=== PATIENT | female | born 1965 | race Caucasian/White ===

== ENCOUNTER 2024-07-06 21:43 | Emergency (ER) | payer MEDICAID ==
[2024-07-06] MEDS ORDERED: HYDRALAZINE HCL 20 MG/ML VIAL ONE (22:17)
--- NOTE | 2024-07-06 22:54 | RAD REPORT ---
EXAMINATION: ONE VIEW CHEST XR CLINICAL INDICATION: Female, 58 years old.,CHEST PAIN TECHNIQUE: Frontal chest projection is submitted. Examination is limited by patient positioning and t echnique. COMPARISON: No prior exam. FINDINGS: The lungs are well inflated and clear. No pneumothorax or sizable effusion. The heart is normal in s ize. Mediastinal contours are unremarkable. IMPRESSION: No acute intrathoracic abnormalities.
[2024-07-06 23:02] LABS: Absolute Eosinophils 0.1 K/uL (0-0.5); Absolute Lymphocytes (CBC) 1.7 K/uL (0.7-4.9); Absolute Monocytes 0.7 K/uL (0.1-1.3); Absolute Neutrophil 3.4 K/uL (1.8-8.0); Basophils % 0.6 % (0-1.3); Eosinophils % 1.6 % (0-4.4); Hematocrit 36.3 % (36.0-45.0); Hemoglobin 12.5 g/dL (12.0-15.0); Lymphocytes % 28.8 % (15.3-44.8); MCH 30.2 pg (27.0-35.0); MCHC 34.5 g/dL (32.0-36.0); MCV 87.6 fL (80-100); MPV 9.7 fL (7.6-11.3); Monocytes % 11.4 % (3.3-12.3); Neutrophils % 57.6 % (41.7-73.7); Nucleated Red Blood Cells % 0.1 % (0-0); Platelets 173 thou/uL (152-406); RBC Red Blood Cell Count 4.15 M/uL (3.86-4.86); Red Cell Distribution Width 13.1 % (12.1-15.2)
[2024-07-06 23:32] LABS: Anion Gap 9.5 mEq/L (5.0-15.0); Troponin High Sensitivity 3.4 pg/mL (<58.9)
[2024-07-06 23:34] LABS: Potassium 3.5 mEq/L (3.5-5.1)
--- NOTE | 2024-07-06 23:54 | ER ---
Nurse's Notes [facility] Name: Rena Castle Age: 58 yrs Sex: Female : 1965 Arrival Date: 07/06/2024 Time: 21:43 Bed 4 Private MD: Diagnosis: Essential (primary) hypertension Presentation: 07/06 21:59 Chief complaint: Patient states: WAS GOING TO BED AND FELT LIGHT HEADED, DIZZY AND dd2 CHEST POUNDING, TOOK HER BP 189/112, 185/107. Coronavirus screen: At this time, the client does not indicate any symptoms associated with coronavirus-19. Ebola Screen: No symptoms or risks identified at this time. Initial Sepsis Screen: Does the patient meet any 2 criteria? No. Patient's initial sepsis screen is negative. Does the patient have a suspected source of infection? No. Patient's initial sepsis screen is negative. Risk Assessment: Do you want to hurt yourself or someone else? Patient reports no desire to harm self or others. Onset of symptoms was July 06, 2024. 21:59 Method Of Arrival: Ambulatory dd2 21:59 Acuity: NICOLE 3 dd2 Triage Assessment: 22:03 General: Appears in no apparent distress. Behavior is calm, cooperative, appropriate dd2 for age. Pain: Denies pain. EENT: No deficits noted. No signs and/or symptoms were reported regarding the EENT system. Neuro: Level of Consciousness is awake, alert, obeys commands, Oriented to person, place, time, Reports dizziness. Cardiovascular: Reports lightheadedness, shortness of breath, JVD is absent Patient's skin is warm and dry. Respiratory: Reports shortness of breath at rest on exertion Airway is patent Respiratory effort is even, unlabored, Respiratory pattern is regular, symmetrical. GI: Abdomen is non-distended, Abd is soft and non tender X 4 quads. : No deficits noted. No signs and/or symptoms were reported regarding the genitourinary system. Derm: No deficits noted. No signs and/or symptoms reported regarding the dermatologic system. Musculoskeletal: No deficits noted. No signs and/or symptoms reported regarding the musculoskeletal system. Circulation, motion, and sensation intact. Range of motion: intact in all extremities. Historical: - Allergies: 22:03 Depakote; dd2 22:03 Spironolactone; dd2 - PMHx: 22:03 Hypertensive disorder; Seizure; Multiple sclerosis; dd2 - PSHx: 22:03 Tonsillectomy; Appendectomy; HYSTERECTOMY; UMESH ELBOW REPAIR; HERNIA REPAIR; KIDNEY SX; dd2 - Immunization history:: Adult Immunizations up to date, Client reports receiving the 2nd dose of the Covid vaccine, Client reports receiving the 1st dose of the Covid vaccine, Flu vaccine is not up to date. It has been more than one year since last vaccine. - Infectious Disease History:: Denies. - Social history:: Smoking status: Patient denies any tobacco usage or history of. Screenin:57 [facility] ED Fall Risk Assessment (Adult) History of falling in the last 3 months, al5 including since admission No falls in past 3 months (0 pts) Confusion or Disorientation No (0 pts) Intoxicated or Sedated No (0 pts) Impaired Gait No (0 pts) Mobility Assist Device Used No (0 pt) Altered Elimination No (0 pt) Score/Fall Risk Level 0 - 2 = Low Risk Oriented to surroundings, Maintained a safe environment, Hourly rounding (assess needs \T\ fall precautionary measures) done. Abuse screen: Denies threats or abuse. Denies injuries from another. Nutritional screening: No deficits noted. Tuberculosis screening: No symptoms or risk factors identified. Assessment: 22:10 General: Appears in no apparent distress. comfortable, Behavior is calm, cooperative. al5 Pain: Complains of pain in head Pain currently is 2 out of 10 on a pain scale. Neuro: Level of Consciousness is awake, alert, obeys commands, Oriented to person, place, time, situation. Cardiovascular: Reports hypertension Capillary refill < 3 seconds Patient's skin is warm and dry. Rhythm is sinus rhythm. Respiratory: Airway is patent Respiratory effort is even, unlabored, Respiratory pattern is regular, symmetrical. GI: No signs and/or symptoms were reported involving the gastrointestinal system. : No signs and/or symptoms were reported regarding the genitourinary system. EENT: No signs and/or symptoms were reported regarding the EENT system. Derm: Skin is intact, is healthy with good turgor, Skin is pink, warm \T\ dry. normal. Musculoskeletal: No signs and/or symptoms reported regarding the musculoskeletal system. 23:57 Reassessment: Patient appears in no apparent distress at this time. Patient and/or al5 family updated on plan of care and expected duration. Pain level reassessed. Patient is alert, oriented x 3, equal unlabored respirations, skin warm/dry/pink. Patient states feeling better. Patient states symptoms have improved. Vital Signs: 21:59 BP 166 / 112; Pulse 82; Resp 17; Temp 98.3; Pulse Ox 98% on R/A; Weight 64.41 kg; dd2 Height 5 ft. 3 in. ; 22:30 BP 157 / 92; Pulse 84; Resp 18; Pulse Ox 97% ; al5 23:30 BP 162 / 88; Pulse 90; Resp 18; Pulse Ox 97% ; al5 21:59 Body Mass Index 25.15 (64.41 kg, 160.02 cm) dd2 ED Course: 21:49 Patient arrived in ED. gm2 21:51 Rocio Arellano PA-C is PHCP. sb4 21:51 Kaveh Costello MD is Attending Physician. sb4 22:02 Kath Sanchez, CORY is Primary Nurse. kd3 22:03 Triage completed. dd2 22:03 Arm band placed on right wrist. dd2 22:10 Patient has correct armband on for positive identification. Bed in low position. Call al5 light in reach. Side rails up X2. Provided Education on: plan of care. 22:18 XRAY Chest (1 view) In Process Unspecified. EDMS 22:28 Inserted saline lock: 22 gauge in right wrist, using aseptic technique. Blood ha1 collected. Flushed with 10 mL NS. 23:57 No provider procedures requiring assistance completed. al5 07/07 00:05 IV discontinued, intact, bleeding controlled, No redness/swelling at site. Pressure al5 dressing applied. Administered Medications: 07/06 22:28 Drug: hydrALAZINE IVP 10 mg IVP once Route: IVP; Site: right wrist; ha1 23:58 Follow up: Response: No adverse reaction; Blood pressure is lowered al5 Medication: 23:58 VIS not applicable for this client. al5 Outcome: 23:53 Discharge ordered by . sb4 07/07 00:05 Discharged to home ambulatory, with significant other, al5 Condition: good Discharge instructions given to patient, Instructed on discharge instructions, follow up and referral plans. medication usage, Demonstrated understanding of instructions, follow-up care, medications, Prescriptions given X 1, 00:28 Patient left the ED. kd3 Signatures: Dispatcher [employer] Kath Campbell RN RN kd3 Mariia Nichole RN RN [email or web address] Rocio Arellano, PAAshleyC PA-C sb4 Lucia Espinoza gm2 Sonal Irwin RN RN al5 MELVIN OVERTON RN RN dd2
--- NOTE | 2024-07-06 23:54 | EDPHYS ---
Physician Documentation [facility] Name: Rena Castle Age: 58 yrs Sex: Female : 1965 Arrival Date: 07/06/2024 Time: 21:43 Bed 4 Private MD: ED Physician Kaveh Costello HPI: 07/06 22:07 This 58 yrs old Female presents to ER via Ambulatory with complaints of High Blood sb4 Pressure. 22:07 Patient states that she was feeling "odd "this evening- lightheaded and a pounding in sb4 her chest. States that she checked her blood pressure and it was 180/90s. Does report a history of hypertension and takes olmesartan daily. States her blood pressure definitely runs 150s over 80s. States that she does currently have a headache. Denies any history of heart disease. Historical: - Allergies: 22:03 Depakote; dd2 22:03 Spironolactone; dd2 - PMHx: 22:03 Hypertensive disorder; Seizure; Multiple sclerosis; dd2 - PSHx: 22:03 Tonsillectomy; Appendectomy; HYSTERECTOMY; UMESH ELBOW REPAIR; HERNIA REPAIR; KIDNEY SX; dd2 - Immunization history:: Adult Immunizations up to date, Client reports receiving the 2nd dose of the Covid vaccine, Client reports receiving the 1st dose of the Covid vaccine, Flu vaccine is not up to date. It has been more than one year since last vaccine. - Infectious Disease History:: Denies. - Social history:: Smoking status: Patient denies any tobacco usage or history of. ROS: 22:08 Constitutional: Negative for fever, chills, and weight loss, sb4 22:08 Cardiovascular: Positive for "pounding", 22:08 Neuro: Positive for light headedness, 22:08 Neuro: Positive for headache, 22:08 All other systems are negative, Exam: 22:34 Constitutional: This is a well developed, well nourished patient who is awake, alert, sb4 and in no acute distress. Head/Face: Normocephalic, atraumatic. Eyes: Extra-ocular motions intact. Periorbital areas with no swelling, redness, or edema. ENT: Mucous membranes moist. Cardiovascular: Regular rate and rhythm with a normal S1 and S2. Respiratory: No increased work of breathing, no retractions or nasal flaring. Abdomen/GI: Soft, non-tender, no distension. Skin: Warm, dry with normal turgor. Normal color with no rashes, no lesions, and no evidence of cellulitis. Neuro: Awake and alert, GCS 15, oriented to person, place, time, and situation. Motor strength 5/5 in all extremities. Sensory grossly intact. Vital Signs: 21:59 BP 166 / 112; Pulse 82; Resp 17; Temp 98.3; Pulse Ox 98% on R/A; Weight 64.41 kg; dd2 Height 5 ft. 3 in. ; 22:30 BP 157 / 92; Pulse 84; Resp 18; Pulse Ox 97% ; al5 23:30 BP 162 / 88; Pulse 90; Resp 18; Pulse Ox 97% ; al5 21:59 Body Mass Index 25.15 (64.41 kg, 160.02 cm) dd2 MDM: 21:52 Medical Screening Exam initiated sb4 23:55 Data reviewed: vital signs, nurses notes, lab test result(s), EKG, radiologic studies, sb4 and as a result, I will discharge patient. Counseling: I had a detailed discussion with the patient and/or guardian regarding the historical points, exam findings, and any diagnostic results supporting the discharge/admit diagnosis, the presence of at least one elevated blood pressure reading (>120/80) during this emergency department visit, lab results, radiology results, the need for outpatient follow up, for definitive care, to return to the emergency department if symptoms worsen or persist or if there are any questions or concerns that arise at home. 07/06 22:04 Order name: Basic Metabolic Panel; Complete Time: 23:37 sb4 07/06 22:04 Order name: CBC with Diff sb4 07/06 22:04 Order name: Troponin HS; Complete Time: 23:37 sb4 07/06 23:14 Order name: CBC Smear Scan EDMS 07/06 22:04 Order name: XRAY Chest (1 view); Complete Time: 22:55 sb4 07/06 22:04 Order name: EKG; Complete Time: 22:04 sb4 07/06 22:04 Order name: Cardiac monitoring; Complete Time: 22:33 sb4 07/06 22:04 Order name: EKG - Nurse/Tech; Complete Time: 22:33 sb4 04/14 22:04 Order name: IV Saline Lock; Complete Time: :33 sb4 07/06 22:04 Order name: Labs collected and sent; Complete Time: : sb4 07/06 22:04 Order name: O2 Per Protocol; Complete Time: : sb4 07/06 22:04 Order name: O2 Sat Monitoring; Complete Time: :33 sb4 EC:34 Rate is 83 beats/min. Rhythm is regular, Normal Sinus Rhythm. [place] interval is normal at sb4 146 msec. QRS interval is normal at 74 msec. QT interval is normal at 384 msec. No Q waves. T waves are Normal. No ST changes noted. Clinical impression: No evidence of ischemia. Interpreted by me. Reviewed by me. Administered Medications: 22:28 Drug: hydrALAZINE IVP 10 mg IVP once Route: IVP; Site: right wrist; ha1 23:58 Follow up: Response: No adverse reaction; Blood pressure is lowered al5 Disposition: 07/07 03:48 Co-signature as Attending Physician, Kaveh Costello MD I agree with the assessment sp4 and plan of care. I reviewed the patient's care provided by the Advanced Practice Provider and agree with the diagnosis and treatment plan. Disposition Summary: 07/06/24 23:53 Discharge Ordered Notes: Location: Home sb4 Problem: new sb4 Symptoms: have improved sb4 Condition: Stable sb4 Diagnosis - Essential (primary) hypertension sb4 Followup: sb4 - With: Private Physician - When: 1 week - Reason: Recheck today's complaints, Re-evaluation by your physician Discharge Instructions: - Discharge Summary Sheet sb4 - Hypertension, Adult sb4 - Form - Blood Pressure Record Sheet sb4 Forms: - Patient Portal Instructions sb4 - Leadership Thank You Letter sb4 Prescriptions: - clonidine HCl 0.1 mg Oral tablet - take 1 tablet ORAL route every 1 to 2 hours as needed for hypertensive sb4 emergency (systolic > 180 or diastoic > 100); do not exceed 8 doses in a 24 hour period; 10 tablet; Refills: 0, Product Selection Permitted Signatures: Dispatcher [employer] EDMA Mariia Nichole RN RN ha1 Rocio Arellano PA-C PA-C sb4 Kaveh Costello MD MD sp4 MELVIN OVERTON RN RN dd2 Dc, Sonal RN al5
[2024-07-07 00:36] LABS: Blood Morphology Comment NOT SEEN (NOT SEEN); Platelet Estimate ADEQ; White Blood Cell Scan OK (OK)
[2024-07-07 00:46] VITALS: TEMP 98.3
[2024-07-07 01:06] VITALS: BP 162/88; O2SAT 97
== END 2024-07-07 00:28 | disposition home or self-care (01) ==
LOC: ER 21:43
DX: I10 Essential (primary) hypertension (principal)
CPT/HCPCS: 93005; 85025; 80048; 36415; 84484; 71045; 96374; 99284; J0360